=== PATIENT | female | born 1990 | race Caucasian/White ===

== ENCOUNTER 2016-11-18 13:39 | Emergency (ER) | payer OTHER ==
[~2016-11-18] VITALS: Ht 170.2 cm; Wt 94.0 kg
[~2016-11-18 13:39] MED LIST: NAPR500T3 PO; NO HOME MEDS
--- OUTSIDE RECORDS SUMMARY | 2016-11-18 13:45 | XMS REPORT | Continuity of Care Document ---
Author Author [facility] Organization [facility] Address Unknown Phone Unavailable Support Name Relationship Address Phone ROHIT BENÍTEZ MD Caregiver [address] [place], [place] [address] [place] Next Of Kin [address] [place] [address] Insurance Providers Payer Name Policy Number Subscriber Name Relationship Henrik [id number] [employer] [place] J 01 Chief Complaint and Reason for Visit Chief Complaint Pain Reason for Visit Sprain Problems Medical Problems Problem Onset Date Status Gastritis 08/15/2013 Resolved Atypical chest pain 08/15/2013 Resolved Sprain ~03/06/2015 Active Medications Medication Dose Route Sig Days/Qty Instructions Order Date Discontinued Date Status Naproxen 500 Mg ORAL TWICE A DAY PRN PAIN 30 Qty 03/17/15 Active [No Home Meds] 03/17/15 Active Social History No social history. Hospital Discharge Instructions No hospital discharge instructions. Plan of Care Discharge Date 03/17/15 12:47pm Disposition 01 HOME OR SELF-CARE Condition at Discharge Stable Prescriptions See Medications Section Additional Instructions/Education Naprosyn as directed. ED [place] if any worse. Follow up with your doctor in 1 week if not greatly improved. Ice, elevate hand. Some of your test results may not be complete prior to your leaving the Emergency Department. The Emergency Department is not authorized to give test results over the phone. Please contact the doctor's office listed in this packet of information for your final results. Follow up with your primary care physician or return to the Emergency Department for worsening or worrisome symptoms. * Emergency Department phone number: [phone], x [phone]* MEDICAL RECORD If you need copies of your X-rays, call [phone]. If you need copies of your medical record, including lab results, a signed authorization for release of records will be required. A telephone call for release of Health Information is not allowed. BILLING Billing can sometimes be confusing and frustrating. To help avoid confusion in the future, please take a moment to acquaint yourself with the billing parties for services. SERVICE BILLING [facility] Emergency Room Services [facility] Physician Services [facility] Patients will receive bills for services from the appropriate provider. If you have any questions about your [facility] bill, our staff will be happy to assist you. Please call [phone], and ask for the billing department. THANK YOU for choosing [facility] as your emergency care provider! Functional Status No functional status results. Allergies, Adverse Reactions, Alerts Allergen Type Severity Reaction Status Last Updated No Known Drug Allergies Active 08/15/13 Immunizations No immunization records. Vital Signs Acute Vital Signs Vital Response Date/Time Temperature (Fahrenheit) 98.0 Pulse 78 bpm Respirations 16 Height 5 ft 8 in Weight 169 lb Body Mass Index 25.0 kg/m^2 Results No known relevant diagnostic tests, laboratory data and/or discharge summary. Procedures No known history of procedures. Encounters Encounter Location Date/Time Departed Emergency Room [facility] 03/17/15 11:30am Recent Diagnosis
--- OUTSIDE RECORDS SUMMARY | 2016-11-18 13:48 | XMS REPORT | Continuity of Care Document ---
Author Author [facility] Organization [facility] Address Unknown Phone Unavailable Support Name Relationship Address Phone ROHIT BENÍTEZ MD Caregiver [address] [place], [place] [id number] [place] Next Of Kin [address] [place] [address] Insurance Providers Payer Name Policy Number Subscriber Name Relationship Henrik [id number] [place] J 01 Chief Complaint and [...] worrisome symptoms. * Emergency Department phone number: [phone], x [phone]* MEDICAL RECORD If you need copies of your X-rays, call [phone]. If you need copies of [...] the billing parties for services. SERVICE BILLING [facility] Emergency Room Services [facility] Physician Services [facility] Patients will receive bills for services from the appropriate provider. If you have any questions about your [facility] bill, our staff will be happy to assist you. Please call [phone], and ask for the billing department. THANK YOU for choosing [facility] as your emergency care provider! Functional [...] Encounters Encounter Location Date/Time Departed Emergency Room [facility] 03/17/15 11:30am Recent Diagnosis
--- NOTE | 2016-11-18 14:27 | NUR ---
pt 22 wks , ob notified for FHTs
--- NOTE | 2016-11-18 14:36 | NUR ---
x-ray notified of
--- NOTE | 2016-11-18 15:03 | Diagnostic Imaging Report ---
FOOT, RIGHT, 3 VIEW COMPARISON: None available. INDICATION: Foot pain after tripping yesterday. TECHNIQUE: Non-weight bearing AP, oblique, and lateral views of the foot. FINDINGS: No fracture or traumatic malalignment. No evidence of metatarsal stress fracture. No radiopaque foreign body. IMPRESSION: 1. No acute fracture or traumatic malalignment. Dictated by: Dictated on workstation # [id number]
--- NOTE | 2016-11-18 15:26 | NUR ---
ob with pt at 1510
[2016-11-18 15:52] VITALS: BP 123/68
== END 2016-11-18 15:45 | disposition home or self-care (01) ==
LOC: ED 13:44
DX: S93.521A Sprain of metatarsophalangeal joint of right great toe, initial encounter (principal); W21.9XXA Striking against or struck by unspecified sports equipment, initial encounter; Y93.89 Activity, other specified; Y92.009 Unspecified place in unspecified non-institutional (private) residence as the place of occurrence of the external cause
CPT/HCPCS: 99282; 99283

== ENCOUNTER → 2016-12-31 | Outpatient (CLI) | payer OTHER ==
--- NOTE | 2016-12-31 14:24 | Diagnostic Imaging Report ---
INDICATION: Evaluate size and dates. TECHNIQUE: Multiple real-time grayscale images were obtained over the gravid uterus. COMPARISON: None FINDINGS: Single live intrauterine at 32 weeks 3 days by today's sonographic measurements. EDC is 02/22/2017. presentation is cephalic. Placenta is located posteriorly with no placenta previa. Three-vessel umbilical cord is noted. Normal amniotic fluid index measuring 12.9 cm. heart rate measures 136 beats per minute. Good visualization of the stomach, kidneys, bladder, aorta, cord insertion, four-chamber heart, spine, and extremities. The cervix measures 4.2 cm. Biometrical measurements are as follows: Biparietal 8.2 cm, age 32 weeks 6 days. Head circumference 30.0 cm, age 33 weeks 2 days. Abdominal circumference 28.6 cm, age 32 weeks 5 days. Femur length 5.9 cm, age 30 weeks 3 days. Sonographic estimate age: 32 weeks 3 days. Sonographic estimated date of delivery: 02/22/2017. Estimated Weight: 1912 gm (+/- 279 gm). LMP percentile: 97%. heart rate: 136 beats per minute. number: 1 of 1. IMPRESSION: 1. Single live intrauterine at 32 weeks 3 days by sonographic measurements. Anatomical survey appears within normal limits as visualized. 2. weight is within the 97th percentile. Dictated by: Dictated on workstation # [id number]
== END ==
LOC: RAD 12:41
PROVIDERS: ATTEND Advanced Practice Midwife
DX: Z34.83 Encounter for supervision of other normal pregnancy, third trimester (principal); Z3A.32 32 weeks gestation of pregnancy
CPT/HCPCS: 76805